=== PATIENT | female | born 1940 | race Caucasian/White ===

== ENCOUNTER 2016-03-15 05:30 | Emergency (ER) | payer MEDICARE, BC ==
[2016-03-15] MEDS ORDERED: Sodium Chloride 0.9% 1,000 ML IV ONE (05:50)
--- NOTE | 2016-03-15 06:14 | EDM.PDOC ---
ED HISTORY OF PRESENT ILLNESS - General Chief Complaint: Cardiovascular Problem Stated Complaint: Fluttering feeling in chest/throat, atrial fib Time Seen by Provider: 03/15/16 06:03 Source of Information: Reports: Patient History Limitations: Reports: No limitations - History of Present Illness INITIAL COMMENTS - FREE TEXT/NARRATIVE: Patient has had a 3-4 month history of new onset atrial fibrillation. She started having palpitations early in 2015, but when she would present to the ED the rhythm would have already changed back to a sinus rhythm. She did finally get a diagnosis about 1.5 months ago when visiting family. She was seen and started on metoprolol er 50 mg daily. Stress test that was performed did not show any worries of ischemia. She is a patient of Dr. Faye. She comes in this morning with complaints of palpitations. EKG confirms a-fib, rate of 130' s. She has some chest pressure and feeling of heart racing. No other symptoms this AM. Symptom Onset Date: 03/15/16 Symptom Onset Time: 04:00 Severity: mild Location, General: Reports: chest Quality: Reports: Pressure Associated Symptoms (General): Reports: other (chest pressure) - Related Data Allergies/ADRs: Allergies Allergy/AdvReac Type Severity Reaction Status Date / Time No Known Allergies Allergy Verified 03/15/16 06:02 Home Meds: Home Meds Docusate Sodium [Colace] 100 mg PO BID 07/07/15 [History] Doxepin [SINEquan] 25 mg PO BEDTIME 07/07/15 [History] Ipratropium [place] 30 ml NS DAILY 07/07/15 [History] Omeprazole [Prilosec] 40 mg PO DAILY 07/07/15 [History] Raloxifene [Evista] 60 mg PO BEDTIME 07/07/15 [History] Solifenacin Succinate [Vesicare] 10 mg PO DAILY 07/07/15 [History] buPROPion [Wellbutrin SR] 150 mg PO DAILY 07/07/15 [History] Past Medical History - Past Health History Medical/Surgical History: Denies Medical/Surgical History Social & Family History - Tobacco Use Smoking Status *Q: Never Smoker - Caffeine Use Caffeine Use: Reports: Coffee - Recreational Drug Use Recreational Drug Use: No Drug Use in Last 12 Months: No - Living Situation & Occupation Living situation: Reports: Occupation: retired ED ROS GENERAL - Review of Systems Review Of Systems: ROS reveals no pertinent complaints other than HPI. ED EXAM, GENERAL - Physical Exam Exam: See Below Exam Limited By: No limitations General Appearance: alert, WD/WN, no apparent distress Head: atraumatic, normocephalic Neck: normal inspection, supple, non-tender, full range of motion. No: carotid bruit Respiratory/Chest: no respiratory distress, lungs clear, normal breath sounds, no accessory muscle use, chest non-tender Cardiovascular: normal peripheral pulses, regular rate, rhythm, no edema, no gallop, no murmur GI/Abdominal: normal bowel sounds, soft, non tender, no organomegaly Neurological: alert, oriented, CN II-XII intact, normal cognition, normal gait Psychiatric: normal affect, normal mood Lymphatic: no adenopathy Course - Orders/Labs/Meds Orders: Active Orders 24 hr Category Date Time Status Chest 1V Frontal [CR] Stat Exams 03/15/16 06:03 Ordered B-TYPE NATRIURETIC PEPTIDE,BNP [CHEM] Stat Lab 03/15/16 06:17 Ordered CK W CKMB [CHEM] Stat Lab 03/15/16 06:17 Ordered COMPREHENSIVE METABOLIC PN,CMP [CHEM] Stat Lab 03/15/16 06:17 Ordered INR,PT,PROTHROMBIN TIME [COAG] Stat Lab 03/15/16 06:17 Ordered TROPONIN I [CHEM] Stat Lab 03/15/16 06:17 Ordered TSH ULTRASENSITIVE [CHEM] Stat Lab 03/15/16 06:17 Ordered Labs: Laboratory Tests 03/15/16 Range/Units 05:55 WBC 6.9 (4.0-10.0) x10^3/uL RBC 4.76 (4.00-5.50) x10^6/uL Hgb 14.6 (12.0-16.0) g/dL Hct 42.2 (33.0-47.0) % MCV 88.7 (78.0-93.0) fL MCH 30.7 (26.0-32.0) pg MCHC 34.6 (32.0-36.0) g/dL RDW Coeff of Shalom 13.4 (10.0-15.0) % Plt Count 294 (130-400) x10^3/uL Neut % (Auto) 44.2 L (50.0-80.0) % Lymph % (Auto) 44.2 (25.0-50.0) % [place] % (Auto) 8.8 (2.0-11.0) % Eos % (Auto) 2.5 (0.0-4.0) % Baso % (Auto) 0.3 (0.2-1.2) % Departure - Departure Time of Disposition: 07:05 Disposition: Home, Self-Care 01 Condition: good Clinical Impression: Atrial fibrillation Instructions: Atrial Fibrillation, [id number] Forms: ED Department Discharge Additional Instructions: Keep your appointment with Dr. Faye. You were in atrial fibrillation as you did feel, when you were discharged, you went back into sinus rhythm. She may want to have you see your prevocational/rehabilitation counselor in [place] for follow up. Please come back to the ER if you go back into a-fib Please call with any questions or concerns. - Problem List & Annotations (1) Atrial fibrillation SNOMED Code(s): 71038138 Code(s): I48.91 - UNSPECIFIED ATRIAL FIBRILLATION Status: Acute Priority : Medium Qualifiers: Atrial fibrillation type: paroxysmal Qualified Code(s): I48.0 - Paroxysmal atrial fibrillation - Problem List Review Problem List Initiated/Reviewed/Updated: Yes - My Orders Last 24 Hours: My Active Orders 03/15/16 06:03 Chest 1V Frontal [CR] Stat 03/15/16 06:17 B-TYPE NATRIURETIC PEPTIDE,BNP [CHEM] Stat CK W CKMB [CHEM] Stat COMPREHENSIVE METABOLIC PN,CMP [CHEM] Stat INR,PT,PROTHROMBIN TIME [COAG] Stat TROPONIN I [CHEM] Stat TSH ULTRASENSITIVE [CHEM] Stat - Assessment/Plan Last 24 Hours: My Active Orders 03/15/16 06:03 Chest 1V Frontal [CR] Stat 03/15/16 06:17 B-TYPE NATRIURETIC PEPTIDE,BNP [CHEM] Stat CK W CKMB [CHEM] Stat COMPREHENSIVE METABOLIC PN,CMP [CHEM] Stat INR,PT,PROTHROMBIN TIME [COAG] Stat TROPONIN I [CHEM] Stat TSH ULTRASENSITIVE [CHEM] Stat Assessment:: atrial fibrillation, paroxysmal Plan: Keep your appointment with Dr. Faye. You were in atrial fibrillation as you did feel, when you were discharged, you went back into sinus rhythm. She may want to have you see your prevocational/rehabilitation counselor in [place] for follow up. Please come back to the ER if you go back into a-fib Please call with any questions or concerns.
[2016-03-15 06:24] LABS: BASOPHILS PERCENT AUTO 0.3 % (0.2-1.2); EOSINOPHILS PERCENT AUTO 2.5 % (0.0-4.0); HEMATOCRIT 42.2 % (33.0-47.0); HEMOGLOBIN 14.6 g/dL (12.0-16.0); LYMPHOCYTES PERCENT AUTO 44.2 % (25.0-50.0); MEAN CORPUSCULAR HEMOGLOBIN 30.7 pg (26.0-32.0); MEAN CORPUSCULAR HGB CONC 34.6 g/dL (32.0-36.0); MEAN CORPUSCULAR VOLUME 88.7 fL (78.0-93.0); MONOCYTES PERCENT AUTO 8.8 % (2.0-11.0); NEUTROPHILS PERCENT AUTO 44.2 % (50.0-80.0); RDW CV 13.4 % (10.0-15.0); RED BLOOD CELL COUNT 4.76 x10^6/uL (4.00-5.50)
[2016-03-15 07:04] LABS: INR 1.6 (2.0-3.5); PROTHROMBIN TIME 17.8 SEC (10.0-12.8)
[2016-03-15 07:12] LABS: A/G RATIO 1.39; ALBUMIN 3.9 g/dL (3.4-5.0); ALKALINE PHOSPHATASE 105 U/L (46-116); B-TYPE NATRIURETIC PEPTIDE,BNP 382 pg/mL (<=450); BILIRUBIN TOTAL 0.5 mg/dL (0.2-1.0); CALCIUM 8.8 mg/dL (8.5-10.1); CHLORIDE,CL 104 mmol/L (98-107); CKMB 1.2 ng/mL (0.0-3.6); CORRECTED CALCIUM 8.88 mg/dL (8.5-10.1); CREATININE 0.8 mg/dL (0.55-1.02); ESTIMATED GFR > 60; GLUCOSE RANDOM 118 mg/dL (74-106); TROPONIN I < 0.017 ng/mL (<=0.056)
[2016-03-15 09:16] VITALS: BP 128/75
== END 2016-03-15 07:05 | disposition home or self-care (01) ==
LOC: VM.ED 05:30
DX: I48.0 Paroxysmal atrial fibrillation (principal); Z79.899 Other long term (current) drug therapy
CPT/HCPCS: 36415; 71010; 80053; 82550; 82553; 83880; 84443; 84484; 85025; 85610; 93005; 96360; 99285; J7030; 99283-GF

== ENCOUNTER 2016-05-08 22:11 | Emergency (ER) | payer MEDICARE, BC ==
[2016-05-08] MEDS ORDERED: Sodium Chloride 0.9% 10 ML Syringe FLUSH PRN (22:24)
[2016-05-08] MEDS ORDERED: Diltiazem 25 MG/5 ML SDV IVPUSH ONE (22:26)
[2016-05-08 23:34] LABS: CHLORIDE,CL 103 mmol/L (98-107); SODIUM,NA 140 mmol/L (136-145)
[2016-05-08] MEDS ORDERED: Metoprolol Tartrate 50 MG Tab PO ONE (23:41)
[2016-05-09 04:47] VITALS: BP 108/72
--- NOTE | 2016-05-09 06:15 | ER ---
Date of Service: 05/08/2016 SUBJECTIVE: Asmita presents to the emergency room with complaints of chest pressure and palpitations. The patient has a long-standing history of intermittent atrial fibrillation and is currently anticoagulated with Coumadin. The patient had been on sotalol for rate control. Sotalol 80 mg for the atrial fibrillation. Previous to that, she had been on Toprol-XL 50 mg daily. She thought that the sotalol was causing her to experience stomach upset so she stopped taking this and went back to taking half a dose of Toprol-XL. She stopped taking the sotalol approximately last . As one would expect her, she began experiencing the palpitations and chest heaviness secondary to atrial fibrillation with RVR this evening. The patient states that she has been experiencing the symptoms approximately one half hour before coming to the emergency room. She states that when she has experienced this in the past, she has converted to a sinus rhythm from atrial fibrillation by the time she arrived in the emergency room. PAST MEDICAL HISTORY: 1. Atrial fibrillation with RVR. 2. GERD. MEDICATIONS: 1. Warfarin. 2. PreserVision vitamins. 3. Protonix. 4. Oxybutynin. 5. Toprol-XL one half tablet daily. 6. Doxepin. 7. Calcium. 8. Alprazolam. ALLERGIES: NKDA. REVIEW OF SYSTEMS: General: No fever or chills. Denies any recent illnesses. HEENT: No sore throat, rhinorrhea, or congestion. Respiratory: No shortness of breath. Cardiac: Denies any substernal chest pain, but states that she is experiencing some chest pressure and palpitations. No jaw, arm, neck, or back pain. GI: No nausea, vomiting, or diarrhea. No melena, hematochezia, or hematemesis. : Denies any dysuria. Musculoskeletal: No myalgias or arthralgias. Neurologic: No fainting, blackouts, or lightheadedness. PHYSICAL EXAMINATION: General: This is a 75-year-old female patient, in no acute distress. Vital Signs: Heart rate was 159, blood pressure is 146/98, respiratory rate was 20, O2 saturations 95%, and temperature is 35.5. Skin: Warm, pale, and dry. HEENT. Head is normocephalic, atraumatic. Eyes, PERRLA. Extraocular movements are intact. Mouth, oral mucosa is moist. Lungs: Clear to auscultation. Heart: Irregularly irregular and tachycardic. Abdomen: Soft, nontender. There is no hepatosplenomegaly noted. There is no masses noted. Extremities: Without edema. Neurologic: She is alert and oriented. Answers all questions appropriately. Her speech is fluent. Her gait is within normal limits. IMAGING: A 12-lead EKG shows atrial fibrillation with RVR at a rate of approximately 140 to [address] obvious acute ST or T-wave abnormalities. LABORATORY DATA: WBCs 8.6, hemoglobin is 13.4, platelets are 261. PT is 39.7, INR is 3.5. Chemistry; sodium is 140, potassium is 4.0, chloride is 103, bicarb is 28, BUN is 19, creatinine 0.7, creatinine clearance is 56.56. GFR is greater than 60. Glucose is 109, calcium is 8.9, corrected calcium is 9.22, total bilirubin is 0.3, AST is 21, ALT is 31, alkaline phosphatase is 111, CK is 46, CK-MB is 0.9. Troponin is less than 0.017, total protein is 6.5, albumin is 3.6, TSH is 3.5 to 9. Emergency room course IV access was established. Plan was to give the patient 20 mg of Cardizem IV, which she had 12 she said, but the patient got approximately 12 mg in total. Her heart rate did decrease down into the 80s and she vacillated between atrial fibrillation and sinus rhythm. She did drop her blood pressure down to approximately was 82 systolic as so no further medication was given. Her blood pressure increased to the 110s at time of discharge. She was no longer experiencing the chest pressure and palpitations and wished to be released home. ASSESSMENT: Atrial fibrillation with rapid ventricular rate. PLAN: The patient was given a metoprolol tartrate with a 50 mg tablet here in the emergency room before she went home. She did report feeling much improved. We will have her restart her Toprol-XL tomorrow morning. Follow up with Cardiology. All questions were answered. MWK: 05/09/2016 00:26:56 MODL: 05/09/2016 06:03:32 /[id number]
== END 2016-05-08 23:59 | disposition home or self-care (01) ==
LOC: VM.ED 22:11
DX: I48.91 Unspecified atrial fibrillation (principal); K21.9 Gastro-esophageal reflux disease without esophagitis; Z79.899 Other long term (current) drug therapy
CPT/HCPCS: 80053; 82550; 82553; 84443; 84484; 85025; 85610; 93005; 96374; 99285; A9270; 99284-GF; J3490

== ENCOUNTER 2016-06-03 22:20 | Emergency (ER) | payer MEDICARE, BC ==
[2016-06-03] MEDS ORDERED: Sodium Chloride 0.9% 10 ML Syringe FLUSH PRN ×2 (22:24→22:27)
[2016-06-03] MEDS ORDERED: Diltiazem 25 MG/5 ML SDV IVPUSH ONE (22:28)
[2016-06-03] MEDS ORDERED: Sodium Chloride 0.9% 1,000 ML IV ONE (22:28)
[2016-06-03] MEDS ORDERED: Ondansetron 4 MG/2 ML SDV IVPUSH ONE (22:35)
[2016-06-03 23:29] LABS: CHLORIDE,CL 99 mmol/L (98-107); SODIUM,NA 133 mmol/L (136-145)
[2016-06-03] MEDS ORDERED: Take Home: Ondansetron 4 MG Tab.DIS, 2 Tab Pack PO ONE (23:50)
[2016-06-03] MEDS ORDERED: Metoclopramide 10 MG/2 ML SDV IVPUSH ONE (23:50)
[2016-06-04 01:01] VITALS: BP 112/80
--- NOTE | 2016-06-04 08:16 | ER ---
Date of Service: 06/03/2016 SUBJECTIVE: Asmita presents to the emergency room with palpitations. The patient has a longstanding history of atrial fibrillation and is scheduled to undergo an ablation procedure a week from Saturday. She does have a history of recurrent relapse into atrial fibrillation and prior to today, the patient was thought to be in sinus rhythm. She is currently anticoagulated with Coumadin. She was supposed to be taking sotalol for continued conversion to a sinus rhythm and rate control, but refused to take the medication due to the side effects and is subsequently taking Toprol-XL 50 mg daily. The patient states that the sensation of racing heart started approximately 30 minutes prior to coming to the emergency room. PAST MEDICAL HISTORY: 1. Atrial fibrillation. 2. GERD:. 3. Urinary incontinence. MEDICATIONS: 1. Oxybutynin. 2. Toprol-XL. 3. Calcium carbonate. 4. Alprazolam. 5. Aspirin. 6. Nexium. 7. Warfarin. 8. PreserVision vitamin. ALLERGIES: NKDA. REVIEW OF SYSTEMS: General: Denies any fever or chills. HEENT: No sore throat, rhinorrhea, or congestion. Respiratory: No shortness of breath. Cardiac: Please see history of present illness. She denies any chest pain. No jaw, arm, neck, or back pain. Gastrointestinal: Positive for nausea, but no vomiting. : Denies any dysuria. Musculoskeletal: No myalgias or arthralgias. PHYSICAL EXAMINATION: General: This is a 75-year-old female patient, who is in no acute distress. Vital Signs: Heart rate is 144, temperature is 35.5, blood pressure is 139/90, respiratory rate 16, O2 saturations 96%. Skin: Warm, pink, and dry. HEENT: Head is normocephalic, atraumatic. Eyes, PERRLA. Extraocular movements are intact. Mouth, oral mucosa is moist. No erythema or exudate in the hypopharynx. Neck: Supple. No masses. There is no lymphadenopathy. Lungs: Clear to auscultation. Heart: Irregularly irregular. She is tachycardic. Abdomen: Soft, nontender. There is no hepatosplenomegaly noted. There is no masses noted. Extremities: Without edema. Neurologic: She is alert and oriented, answers all questions appropriately. Her speech is fluent. Her gait is within normal limits. LABORATORY DATA: CBC was obtained, was all noted to be within normal limits. Comprehensive metabolic panel was obtained and was noted to be within normal limits. CK was 60. Troponin is less than 0.017. TSH was 3.0248. INR was 2.1. EMERGENCY ROOM COURSE: IV access was established. A liter of normal saline was run in wide open. She was given Cardizem 20 mg slow IV push. Her rate decreased into the low 70s and remained in that range. She was experiencing some nausea, so she was subsequently given Zofran and then Reglan for her nausea. She did report significant improvement in her symptoms. ASSESSMENT: Atrial fibrillation with rapid ventricular rate. PLAN: The patient will be discharged. Follow up in the clinic in 7-10 days. Advised to keep her appointment with her cash shortage investigator a week from Saturday. She is to return to the emergency room if she develops any worsening racing of her heart, palpitations, chest pain or shortness of breath. All questions were answered. MWK: 06/04/2016 04:06:44 MODL: 06/04/2016 04:33:08 /[id number]
== END 2016-06-03 22:58 | disposition home or self-care (01) ==
LOC: VM.ED 22:20
DX: I48.91 Unspecified atrial fibrillation (principal); K21.9 Gastro-esophageal reflux disease without esophagitis; Z79.82 Long term (current) use of aspirin
CPT/HCPCS: 71020; 80053; 82550; 84443; 84484; 85025; 85610; 93005; 99285; A9270; J2405; J2765; J7030; 96361; 96374; 96375; 99284-GF; J3490

== ENCOUNTER 2016-06-06 18:41 | Emergency (ER) | payer MEDICARE, BC ==
[2016-06-06] MEDS ORDERED: Diltiazem 25 MG/5 ML SDV IVPUSH ONE ×2 (19:22→19:42)
[2016-06-06] MEDS ORDERED: Sodium Chloride 0.9% 1,000 ML IV ONE (19:44)
[2016-06-06 20:40] LABS: CHLORIDE,CL 101 mmol/L (98-107); SODIUM,NA 136 mmol/L (136-145)
[2016-06-06 22:12] VITALS: BP 101/68
--- NOTE | 2016-06-10 21:55 | ER ---
Date of Service: 06/06/2016 SUBJECTIVE: Asmita presents to the emergency room with complaints of palpitations. The patient was initially seen by Guillaume Levin. Please refer to his documentation regarding the patient's history of present illness, past medical history, and medications. To note, the patient was seen by me earlier this week and was found to be in atrial fibrillation with RVR. She was successfully treated with IV Cardizem, which did return the patient into atrial fibrillation at a rate of approximately 70. The patient is scheduled to undergo ablation procedure in approximately 1 week. She previously had been on sotalol, but was unable to tolerate this and is now currently on a low dose of metoprolol. REVIEW OF SYSTEMS: General: No fever or chills. HEENT: No sore throat, rhinorrhea, or congestion. Respiratory: No shortness breath. Cardiac: Denies any substernal chest pain. Again, she does have palpitations and sensation of racing heart. Denies any jaw or neck or back pain. GI: Nausea, vomiting, or diarrhea. No melena, hematochezia, or hematemesis. : Denies any dysuria. Musculoskeletal: No myalgias or arthralgias. Neurologic: No fainting, blackouts, or lightheadedness. PHYSICAL EXAMINATION: General: This is a 76-year-old female patient, in no acute distress. Vital Signs: Heart rate is 147, blood pressure is 129/79, respiratory rate is 20, O2 saturations 96%, temperature is 36.2. Skin: Warm, pink, and dry. HEENT: Head is normocephalic, atraumatic. Eyes, PERRLA. Extraocular intact. Ears, TMs are clear. Mouth, oral mucosa is moist. No erythema or exudate noted on the hypopharynx. Neck: Supple. No masses. There is no lymphadenopathy. Lungs: Clear to auscultation. Heart: Irregularly irregular. It is tachycardic. No murmurs are noted. Abdomen: Soft, nontender. There is no hepatosplenomegaly or masses noted. Extremities: Without edema. Neurologic: She is alert and oriented, answers all questions appropriately. Her speech is fluent. Her gait is within normal limits. LABORATORY DATA: CBC was obtained with the exception of a mildly decreased hemoglobin of 11.6, was within normal limits. Chemistry; sodium is 136, potassium is 3.5, chloride is 101, bicarb is 25, BUN is 10, creatinine is 0.8, glucose 124, calcium is 7.8, corrected calcium is 8.52, total bilirubin is 0.3. AST is 18, ALT is 33, alkaline phosphatase is 87, troponin is less than 0.017, total protein is 5.4, albumin 3.1. TSH is 2.397. EMERGENCY ROOM COURSE: IV access was established. The patient had been given 5 mg of Cardizem by Guillaume Levin. The patient's heart rate remained in the 130s. The patient was subsequently given total of 10 mg of Cardizem and the patient's blood pressure was rechecked and was found to be in the 90s systolic. No further Cardizem was given and the patient's heart rate gradually decreased into the 70s. Her blood pressure did improve and at the time of discharge was 101/68. The patient stated her heart rate was 80. She was no longer experiencing any palpitations and stated that she was feeling much better and wished to proceed with discharge. ASSESSMENT: Atrial fibrillation with rapid ventricular rate. PLAN: I did contact Dr. Little, the boiler testing technician on-call at [facility] in [place]. He stated that the patient's metoprolol should be increased to 100 mg daily. He did not favor starting the patient on Cardizem of other agents for rate control. To note, she is currently anticoagulated with Coumadin. I would like her to return to the emergency room if she develops any recurrence of her palpitations or if she develops any chest pain or shortness of breath. All questions were answered. MWK: 06/10/2016 20:26:22 MODL: 06/10/2016 21:47:01 /[id number]
--- NOTE | 2016-06-14 23:52 | EDM.PDOC ---
ED HISTORY OF PRESENT ILLNESS - General Chief Complaint: Cardiovascular Problem Stated Complaint: Feels heart beat in throat Time Seen by Provider: 06/06/16 19:20 - History of Present Illness INITIAL COMMENTS - FREE TEXT/NARRATIVE: PATIENT SEEN AND EXAMINED BY JOSE RUIZ PA-C - Related Data Allergies/ADRs: Allergies Allergy/AdvReac Type Severity Reaction Status Date / Time No Known Allergies Allergy Verified 06/06/16 18:45 Home Meds: Home Meds ALPRAZolam [Alprazolam] 0.5 mg PO BEDTIME 03/15/16 [History] Calcium Carbonate [Calcium] 500 mg PO BID 03/15/16 [History] Metoprolol Succinate [Toprol XL 50mg] 50 mg PO DAILY 03/15/16 [History] Oxybutynin 5 mg PO BID 03/15/16 [History] Vit A/Vit C/Vit E/Zinc/Copper [Preservision Areds Softgel] 1 cap PO BID [History] Warfarin [Coumadin] 5 mg PO ASDIRECTED 03/15/16 [History] Aspirin 81 mg PO BRK 06/03/16 [History] Esomeprazole Magnesium [Nexium] 40 mg PO BID 06/03/16 [History] Past Medical History - Past Health History Medical/Surgical History: Denies Medical/Surgical History Cardiovascular History: Reports: Afib Gastrointestinal History: Reports: GERD Social & Family History - Tobacco Use Smoking Status *Q: Never Smoker - Caffeine Use Caffeine Use: Reports: None - Recreational Drug Use Recreational Drug Use: No Drug Use in Last 12 Months: No - Living Situation & Occupation Living situation: Reports: Occupation: retired ED ROS GENERAL - Review of Systems Review Of Systems: See Below (DICTATED BY JOSE RUIZ PA-C) ED EXAM, GENERAL - Physical Exam Exam: See Below (DICTATED BY JOSE RUIZ PA-C) Course - Vital Signs Last Recorded V/S: Last Vital Signs Temp 36.2 C 06/06/16 18:48 Pulse 80 06/06/16 20:23 Resp 16 06/06/16 19:59 BP 101/68 06/06/16 20:23 Pulse Ox 94 L 06/06/16 20:23 - Orders/Labs/Meds Labs: Laboratory Tests 06/06/16 06/06/16 06/06/16 Range/Units 20:01 20:01 20:01 WBC 6.9 (4.0-10.0) x10^3/uL RBC 3.83 L (4.00-5.50) x10^6/uL Hgb 11.6 L (12.0-16.0) g/dL Hct 33.5 (33.0-47.0) % MCV 87.5 (78.0-93.0) fL MCH 30.3 (26.0-32.0) pg MCHC 34.6 (32.0-36.0) g/dL RDW Coeff of Shalom 12.3 (10.0-15.0) % Plt Count 259 (130-400) x10^3/uL Neut % (Auto) 59.5 (50.0-80.0) % Lymph % (Auto) 27.2 (25.0-50.0) % [place] % (Auto) 10.9 (2.0-11.0) % Eos % (Auto) 2.0 (0.0-4.0) % Baso % (Auto) 0.4 (0.2-1.2) % PT 22.3 H (10.0-12.8) SEC INR 2.0 (2.0-3.5) Sodium 136 (136-145) mmol/L Potassium 3.5 (3.5-5.1) mmol/L Chloride 101 (98-107) mmol/L Carbon Dioxide 25 (21-32) mmol/L BUN 10 (7-18) mg/dL Creatinine 0.8 (0.55-1.02) mg/dL Est Cr Clr Drug Dosing TNP Estimated GFR (MDRD) > 60 Glucose 124 H (74-106) mg/dL Calcium 7.8 L (8.5-10.1) mg/dL Corrected Calcium 8.52 (8.5-10.1) mg/dL Total Bilirubin 0.3 (0.2-1.0) mg/dL AST 18 (15-37) U/L ALT 33 (14-59) U/L Alkaline Phosphatase 87 (46-116) U/L Troponin I < 0.017 (<=0.056) ng/mL Total Protein 5.4 L (6.4-8.2) g/dL Albumin 3.1 L (3.4-5.0) g/dL Globulin 2.3 Albumin/Globulin Ratio 1.35 TSH, Ultra Sensitive 2.397 (0.358-3.74) uIU/mL Meds: Medications Discontinued Medications Generic Name Dose Route Start Last Admin Trade Name Yarielq PRN Reason Stop Dose Admin Diltiazem HCl 5 mg 06/06/16 19:22 06/06/16 19:35 Diltiazem IVPUSH 06/06/16 19:23 5 mg ONETIME ONE Administration Diltiazem HCl 15 mg 06/06/16 19:42 06/06/16 19:55 Diltiazem IVPUSH 06/06/16 19:43 Not Given ONETIME ONE Sodium Chloride 1,000 mls @ 1,000 mls/hr 06/06/16 19:44 06/06/16 20:02 Normal Saline IV 06/06/16 20:43 1,000 mls/hr .BOLUS ONE Administration Departure - Departure Time of Disposition: 20:26 Disposition: Home, Self-Care 01 Clinical Impression: Atrial fibrillation Qualifiers: Atrial fibrillation type: unspecified Qualified Code(s): I48.91 - Unspecified atrial fibrillation Instructions: Atrial Fibrillation Referrals: Daniella Faye DO [Primary Care Provider] - Forms: ED Department Discharge Additional Instructions: Return to ER if you have racing of your heart. I will contact your if cardiology wants to start you on a different medication for your a-fib.
== END 2016-06-06 21:02 | disposition home or self-care (01) ==
LOC: VM.ED 18:41 → SUPCPDRO 18:41 → VM.ED 21:02
DX: I48.91 Unspecified atrial fibrillation (principal)
CPT/HCPCS: 36415; 80053; 84443; 84484; 85025; 85610; 93005; 96361; 96374; 99285; J7030; 99284-GF; J3490